=== PATIENT | female | born 1980 | race Caucasian/White ===

== ENCOUNTER 2020-12-06 10:19 | Emergency (ER) | payer OTHER, SELFPAY ==
--- NOTE | 2020-12-06 10:26 | ED.EYEPROB ---
HPI - Eye Problem General Chief complaint: Eye Problems Stated complaint: poss pink eye Time Seen by Provider: 12/06/20 10:26 Source: patient and RN notes reviewed History of Present Illness HPI Narrative: Patient is a 40-year-old female who presents the urgent care with complaints of possible pinkeye which is since resolved . Patient states that she woke up at 5 AM with redness and discharge in her mother believes she needs to be seen . Patient states that that was at 5 AM today and she believes that she had an eyelash in her eye at the time. Patient states that it is now resolved and she is complaining of no pain, trauma, vision changes. Reports that the affected eye had been the right eye. Currently denies of any acute complaints. Patient appears to be under the influence of either medications or drugs. Patient has a very flat affect and tends to drag out long sentences with slight slow to response. Otherwise no acute distress noted. Patient aware of the plan of care. Some parts of this dictation were generated by voice recognition software and may contain typographical and/or grammatical inaccuracies. Related Data Home Medications Medication Instructions Recorded Confirmed buprenorphine-naloxone [Suboxone] 1 tablet SUBLINGUAL BID 12/06/20 12/06/20 clonidine HCl 0.1 mg PO BID 12/06/20 12/06/20 dextroamphetamine-amphetamine 15 mg PO BID 12/06/20 12/06/20 [Adderall] Allergies Allergy/AdvReac Type Severity Reaction Status Date / Time No Known Allergies Allergy Unverified 07/14/16 13:31 Review of Systems Review of Systems: Narrative: CONSTITUTIONAL: Denies fever, chills, or sweats. EYES: Denies visual changes, redness, or discharge. ENT: Denies rhinorrhea, congestion, sore throat, or otalgia. CARDIOVASCULAR: Denies chest pain, palpitations, or edema. RESPIRATORY: Denies cough or dyspnea. GASTROINTESTINAL: Denies abdominal pain, nausea, vomiting, or diarrhea. GENITOURINARY: Denies dysuria or hematuria. SKIN: Denies rash or itching. MUSCULOSKELETAL: Denies back pain, joint pain, or myalgia. NEUROLOGIC: Denies headache, numbness, or weakness. All other systems reviewed are negative, except as documented in HPI. [facility] Social History Social History Gender identity (if verbalized by the patient): Female Comments At the time of my signature, I reviewed and agree with the nursing past medical, surgical, social, and family history. There is no relevant family history pertinent to the patient complaint. Exam Narrative: Exam Narrative: GENERAL: This is a well-nourished, well-developed patient, in no apparent distress. HEAD: normocephalic, atraumatic. EYES: PERRL. Sclera clear/white. Vision is grossly intact. EARS: External ears normal NOSE: External nose normal with no obvious nasal discharge, nares without redness, no rhinorrhea. THROAT: Mucous membranes moist NECK: Neck supple SKIN: warm, intact with no suspicious lesions or rash, good texture and turgor. NEURO: awake, alert, and oriented to person, place and time. There were no obvious focal neurologic abnormalities. EXTREMITIES: No clubbing, cyanosis, or edema. Course Vital Signs Vital signs: Vital Signs Temperature 97.7 F 12/06/20 10:48 Pulse Rate 78 12/06/20 10:48 Respiratory Rate 16 12/06/20 10:48 Blood Pressure 120/75 12/06/20 10:48 Pulse Oximetry 100 12/06/20 10:48 Temperature 97.7 F 12/06/20 10:48 Pulse Rate 78 12/06/20 10:48 Respiratory Rate 16 12/06/20 10:48 Blood Pressure 120/75 12/06/20 10:48 Pulse Oximetry 100 12/06/20 10:48 Reviewed MDM - Eye Problem MDM Narrative Medical decision making narrative: Recommended [id number] clear eyedrops to the patient if necessary. May use a warm compress. Otherwise, presentation and symptoms do not suggest conjunctivitis and therefore medications are not necessary at this time. If you develop any increase in symptoms associated with itchiness, redness, vision
[2020-12-06 10:48] VITALS: BP 120/75; PULSE 78; RESP 16; TEMP 36.5; O2SAT 100
== END 2020-12-06 11:00 | disposition home or self-care (01) ==
PROVIDERS: Emergency Provider Nurse Practitioner Family
DX: H57.89 Other specified disorders of eye and adnexa (principal); F90.9 Attention-deficit hyperactivity disorder, unspecified type
CPT/HCPCS: 99212; G0463